=== PATIENT | female | born 1970 | race Caucasian/White ===

== ENCOUNTER → 2017-11-02 | Outpatient (REF) | payer OTHER | LOC: M LAB REF 11:44 | DX: L72.0 Epidermal cyst (principal) ==

== ENCOUNTER → 2018-11-17 | Outpatient (REF) | payer OTHER | LOC: M SFHCLERA 12:06 | PROVIDERS: ATTEND Nurse Practitioner Family | DX: J02.9 Acute pharyngitis, unspecified (principal) ==